=== PATIENT | female | born 1935 | race Caucasian/White ===

== ENCOUNTER → 2024-02-21 09:16 | Outpatient (REF) | payer MEDICARE, BC, SELFPAY | LOC: DHCBC HW 09:16 | PROVIDERS: ATTENDING PHYSICIAN Internal Medicine Cardiovascular Disease; FAMILY PHYSICIAN Internal Medicine Geriatric Medicine | DX: R60.0 Localized edema (principal); I10 Essential (primary) hypertension; R06.09 Other forms of dyspnea; I07.1 Rheumatic tricuspid insufficiency | CPT/HCPCS: 93306 ==

== ENCOUNTER → 2024-04-05 09:52 | Outpatient (REF) | payer MEDICARE, BC, SELFPAY | LOC: MRI 3T 09:52 | PROVIDERS: ATTENDING PHYSICIAN Pain Medicine Interventional Pain Medicine | DX: M54.16 Radiculopathy, lumbar region (principal) | CPT/HCPCS: 72148 ==

== ENCOUNTER 2024-04-30 13:23 | Outpatient (RCR) | payer MEDICARE, BC, SELFPAY | END 2024-04-30 23:59 | disposition home or self-care (01) | LOC: RPT 13:23 | PROVIDERS: ATTENDING PHYSICIAN Pain Medicine Interventional Pain Medicine | DX: M54.16 Radiculopathy, lumbar region (principal); Z73.6 Limitation of activities due to disability | CPT/HCPCS: 97110; 97112; 97162 ==

== ENCOUNTER 2024-05-12 13:01 | Outpatient (RCR) | payer MEDICARE, BC, SELFPAY | END 2024-05-12 23:59 | disposition home or self-care (01) | LOC: RPT 13:01 | PROVIDERS: ATTENDING PHYSICIAN Pain Medicine Interventional Pain Medicine | DX: M54.16 Radiculopathy, lumbar region (principal) | CPT/HCPCS: 97110; 97112; 97530 ==